=== PATIENT | male | born 1995 | race Two or more races ===

== ENCOUNTER 2018-01-12 10:11 | Emergency (ER) | payer MEDICAID ==
[~2018-01-12] VITALS: Ht 175.3 cm; Wt 106.6 kg
[2018-01-12 10:19] VITALS: BP 155/80
== END 2018-01-12 12:40 | disposition home or self-care (01) ==
LOC: ER 10:11
DX: S29.012A Strain of muscle and tendon of back wall of thorax, initial encounter (principal); X50.3XXA Overexertion from repetitive movements, initial encounter; X50.9XXA Other and unspecified overexertion or strenuous movements or postures, initial encounter; Y93.89 Activity, other specified; Y99.0 Civilian activity done for income or pay; Y92.511 Restaurant or cafe as the place of occurrence of the external cause
CPT/HCPCS: 71046